=== PATIENT | female | born 1980 | race Caucasian/White ===

== ENCOUNTER 2017-09-22 14:51 | Emergency (ER) | payer SELFPAY ==
[2017-09-22] MEDS ORDERED: Ketorolac 60 MG/2 ML SDV IM ONE (15:21)
--- NOTE | 2017-09-22 15:28 | EDM.PDOC ---
ED HPI GENERAL MEDICAL PROBLEM - General Chief Complaint: General Stated Complaint: HEADACHE Time Seen by Provider: 09/22/17 15:15 Source of Information: Reports: Patient History Limitations: Reports: No Limitations - History of Present Illness INITIAL COMMENTS - FREE TEXT/NARRATIVE: History of present illness: [37-year-old female comes in with a myriad of complaints. Patient indicates that she has a tight neck, pain in her left arm intermittently radiating down the arm into the armpit. Patient also states that she has swollen glands in her left axilla as well as now in her breast. Patient acute she thinks there could be some concern as breast cancer and recently in her family. Patient then indicates that she has a debilitating headache the headache has been bad for the last 4 days and that it won't go away but then acknowledges that she has not really taken anything for it.] Review of systems: As per history of present illness and below otherwise all systems reviewed and negative. Past medical history: As per history of present illness and as reviewed below otherwise noncontributory. Surgical history: As per history of present illness and as reviewed below otherwise noncontributory. Social history: No reported history of drug or alcohol abuse. Family history: As per history of present illness and as reviewed below otherwise noncontributory. Physical exam: HEENT: Atraumatic, normocephalic, pupils reactive, negative for conjunctival pallor or scleral icterus, mucous membranes moist, throat clear, neck supple, nontender, trachea midline. Lungs: Clear to auscultation, breath sounds equal bilaterally, chest nontender. Heart: S1S2, regular, negative for clicks, rubs, or JVD. Abdomen: Soft, nondistended, nontender. Negative for masses or hepatosplenomegaly. Negative for costovertebral tenderness. Pelvis: Stable nontender. Genitourinary: Deferred. Rectal: Deferred. Extremities: Atraumatic, negative for cords or calf pain. Neurovascular unremarkable. Neuro: Awake, alert, oriented. Cranial nerves II through XII unremarkable. Cerebellum unremarkable. Motor and sensory unremarkable throughout. Exam nonfocal. Left levator scapula and sternocleidomastoid noted to be very tight and painful on palpation Frontal and maxillary sinuses tender to palpation Diagnostics: [] Therapeutics: [Toradol, Norflex, Claritin D] Impression: [#1 Shoulder pain #2 sinus headache #3 tension headache] Plan: [Muscle relaxer anti-inflammatory follow-up with primary care] Definitive disposition and diagnosis as appropriate pending reevaluation and review of above. - Related Data Allergies Allergy/AdvReac Type Severity Reaction Status Date / Time No Known Allergies Allergy Verified 09/22/17 15:13 Home Meds: Home Meds Meloxicam 7.5 mg PO BID #30 tablet 09/22/17 [Rx] Orphenadrine [Norflex] 100 mg PO BID #28 tab.er 09/22/17 [Rx] Past Medical History - Past Health History Medical/Surgical History: Denies Medical/Surgical History ED ROS GENERAL - Review of Systems Review Of Systems: See Below (History of present illness) ED EXAM, GENERAL - Physical Exam Exam: See Below (See history of present illness) Course - Vital Signs Last Recorded V/S: Last Vital Signs Temp 36.3 C 09/22/17 15:15 Pulse 90 09/22/17 15:15 Resp 18 09/22/17 15:15 BP 155/79 H 09/22/17 15:15 Pulse Ox 100 09/22/17 15:15 - Orders/Labs/Meds Orders: Active Orders 24 hr Category Date Time Status Orphenadrine [Norflex] Med 09/22/17 15:30 Active 60 mg IM Q12H Medication Orders Orphenadrine Citrate (Norflex) 60 mg IM Q12H RUBINA Last Admin: 09/22/17 15:33 Dose: 60 mg Meds: Medications Generic Name Dose Route Start Last Admin Trade Name Freq PRN Reason Stop Dose Admin Orphenadrine Citrate 60 mg 09/22/17 15:30 09/22/17 15:33 Norflex IM 60 mg Q12H RUBINA Administration Discontinued Medications Generic Name Dose Route Start Last Admin Trade Name Freq PRN Reason Stop Dose Admin Ketorolac Tromethamine 60 mg 09/22/17 15:21 09/22/17 15:34 Toradol IM 09/22/17 15:22 60 mg ONETIME ONE Administration Loratadine/Pseudoephedrine Sulfate 1 tab 09/22/17 15:30 09/22/17 15:43 Claritin-D 12 Hour PO 09/22/17 15:31 1 tab NOW ONE Administration Departure - Departure Time of Disposition: 16:18 Disposition: Home, Self-Care 01 Condition: Good Clinical Impression: Musculoskeletal pain, Headache - Discharge Information Prescriptions: Meloxicam 7.5 mg PO BID #30 tablet Orphenadrine [Norflex] 100 mg PO BID #28 tab.er Forms: ED Department Discharge Additional Instructions: The following information is given to patients seen in the emergency department who are being discharged to home. This information is to outline your options for follow-up care. We provide all patients seen in our emergency department with a follow-up referral. The need for follow-up, as well as the timing and circumstances, are variable depending upon the specifics of your emergency department visit. If you don't have a primary care physician on staff, we will provide you with a referral. We always advise you to contact your personal physician following an emergency department visit to inform them of the circumstance of the visit and for follow-up with them and/or the need for any referrals to a consulting specialist. The emergency department will also refer you to a specialist when appropriate. This referral assures that you have the opportunity for follow-up care with a specialist. All of these measure are taken in an effort to provide you with optimal care, which includes your follow-up. Under all circumstances we always encourage you to contact your private physician who remains a resource for coordinating your care. When calling for follow-up care, please make the office aware that this follow-up is from your recent emergency room visit. If for any reason you are refused follow-up, please contact the [facility] Emergency Department at and asked to speak to the emergency department charge nurse. Take medication as directed Pop with primary care as discussed Return to ED as needed as discussed - My Orders Last 24 Hours: My Active Orders 09/22/17 15:30 Orphenadrine [Norflex] 60 mg IM Q12H - Assessment/Plan Last 24 Hours: My Active Orders 09/22/17 15:30 Orphenadrine [Norflex] 60 mg IM Q12H
[2017-09-22] MEDS ORDERED: Loratadine/Pseudoephedrine 5-120 MG Tab.ER PO ONE (15:30)
== END 2017-09-22 16:33 | disposition home or self-care (01) ==
LOC: MW.ED 14:51
DX: G44.209 Tension-type headache, unspecified, not intractable (principal); M25.512 Pain in left shoulder
CPT/HCPCS: 96372; 99283; A9270; J1885; J2360; 99282